=== PATIENT | male | born 1955 | race Two or more races ===

== ENCOUNTER 2018-11-24 08:52 | Outpatient (CLI) | payer OTHER ==
[~2018-11-24 08:52] MED LIST: ATACAND16 MG; VYTORIN 10-20 M1 TAB
== END 2018-11-24 08:56 | disposition home or self-care (01) ==
LOC: RAD 08:52
DX: N20.1 Calculus of ureter (principal)

== ENCOUNTER → 2018-12-02 | Outpatient (CLI) | payer OTHER | END | disposition home or self-care (01) | LOC: RAD 10:10 | DX: I10 Essential (primary) hypertension (principal) ==

== ENCOUNTER 2018-12-09 07:44 | Outpatient (CLI) | payer OTHER | END 2018-12-09 07:52 | disposition home or self-care (01) | LOC: EKG 07:44 | DX: Z01.810 Encounter for preprocedural cardiovascular examination (principal) ==

== ENCOUNTER 2018-12-14 10:44 | Day surgery (SDC) | payer OTHER ==
[~2018-12-14 10:44] MED LIST changes: +LIPITOR 20 MG; +PRILOSEC 40MG
== END 2018-12-14 20:30 | disposition home or self-care (01) ==
LOC: CIR.AMB 10:44 → EDSTATUS 11:15 → SURG 11:15 → CIR.AMB 11:15 → SURG 11:30 → CIR.AMB 20:30
DX: N20.1 Calculus of ureter (principal)

== ENCOUNTER 2020-04-25 08:35 | Day surgery (SDC) | payer OTHER ==
[~2020-04-25 08:35] MED LIST changes: +PROBIOTIC1 EAC2 PO
[2020-04-25] MEDS ORDERED: ULTRAM50 MG PO (13:01)
[2020-04-25] MEDS ORDERED: NEURONTIN300 MG PO (13:01)
[2020-04-25] MEDS ORDERED: MIRALAX17 GM PO (13:01)
[2020-04-25] MEDS ORDERED: TYLENOL ARTHRI650 MG PO (13:01)
== END 2020-04-25 19:20 | disposition home or self-care (01) ==
LOC: CIR.AMB 08:35
PROVIDERS: ATTEND Surgery
DX: K40.90 Unilateral inguinal hernia, without obstruction or gangrene, not specified as recurrent (principal); Z20.828 Contact with and (suspected) exposure to other viral communicable diseases

== ENCOUNTER 2024-07-05 14:46 | Inpatient (IN) | payer OTHER ==
[~2024-07-05] VITALS: Ht 177.8 cm; Wt 63.5 kg
[~2024-07-05 14:46] MED LIST changes: +MIRALAX17 GM PO; +NEURONTIN300 MG PO; +TYLENOL ARTHRI650 MG PO; +ULTRAM50 MG PO
--- NOTE | 2024-07-05 15:13 | NUR ---
PTE ALERTA Y ORIENTADO X3 REFIERE TENER DOLOR EN RLQ DESDE HACE [place], NOTIFICA DOS EPISODIOS DE DIARREA, NIEGA VOMITOS. SE MIDEN SV Y SE UBICA.
[2024-07-05] MEDS ORDERED: ZOLOFT20 MG/1 ML PO (15:16)
[2024-07-05] MEDS ORDERED: ZOLOFT25 MG PO (15:17)
[2024-07-05] MEDS ORDERED: KETOROLAC TROMETHAMINE 30 MG VIAL IV STA (17:05)
[2024-07-05] MEDS ORDERED: TRAMADOL HCL 50 MG TABLET PO STA (17:06)
[2024-07-05] MEDS ORDERED: HYOSCYAMINE SULFATE 0.125 MG TAB.SUBL SL ONE (17:15)
[2024-07-05] MEDS ORDERED: HYOSCYAMINE SULFATE 0.125 MG TAB.SUBL ONE (17:31)
[2024-07-05] MEDS ORDERED: KETOROLAC TROMETHAMINE 30 MG VIAL ONE ×2 (17:31→19:53)
[2024-07-05 18:00] LABS: HEMATOCRIT 44.5 % (39.0-48.0); HEMOGLOBIN 14.7 g/dL (13-16.00); MEAN CELL VOLUME 88.6 fL (80.0-100.00); MEAN CORPUSCULAR HEMOGLOBIN 29.4 pg (27.00-32.0); MEAN CORPUSCULAR HGB CONC 33.1 g/dl (32.0-36.0); PLATELET COUNT 212 K/uL (150-450); RED BLOOD COUNT 5.02 M/uL (4.00-6.00); RED CELL DISTRIBUTION WIDTH 13.9 % (11.5-14.5)
--- NOTE | 2024-07-05 18:06 | NUR ---
PTE ALERTA Y ORIENTADO X3. SE EDUCA A PTE SOBRE ANTHONY DE MUESTRAS Y TRATAMIENTO MEDICO ORDENADO POR MD, PTE REFIERE ENTENDER. SE REALIZAN REBECCA DE MUESTRAS Y SE ADMINISTRA TRATAMIENTO MEDICO BAJO MEDIDAS ASEPTICAS. SE NOTIFICA CT
[2024-07-05 18:22] LABS: INR 1.08; PARTIAL THROMBOPLASTIN TIME 32.3 SECONDS (22.0-34.0); PROTHROMBIN TIME 11.7 SECONDS (9.0-11.5)
[2024-07-05 18:31] LABS: ALBUMIN 3.9 gm/dL (3.4-5.0); BILIRUBIN TOTAL 1.94 mg/dL (0.3-1.2); CALCIUM 9.7 mg/dL (8.5-10.1); CREATININE SERUM 0.7 mg/dL (0.70-1.30); GFR 111.82; GLOBULINA 3.1 G/DL (2.4-3.5); POTASSIUM 4.59 mEq/L (3.5-5.1)
[2024-07-05 19:04] LABS: URINE APPEARANCE Clear; URINE BILIRRUBIN Negative (NEGATIVE); URINE BLOOD Negative; URINE COLOR Yellow; URINE GLUCOSE Negative (NEGATIVE); URINE KETONE Negative (NEGATIVE); URINE LEUKOCYTE Negative; URINE NITRATE Negative; URINE PROTEIN Negative (NEGATIVE); URINE UROBILINOGEN 0.2 E.U./dl
[2024-07-05 19:11] LABS: URINE BACTERIA 1.2 uL (0.0-1933); URINE WBC 1.4 uL (0.0-23.2)
[2024-07-05] MEDS ORDERED: METRONIDAZOLE/SODIUM CHLORIDE 100 ML IV SCH (19:38)
[2024-07-05] MEDS ORDERED: FAMOTIDINE/PF 20 MG in 0.9 % SODIUM CHLORIDE 8 ML IV PUSH SCH (19:38)
[2024-07-05] MEDS ORDERED: CEFTRIAXONE SODIUM 2,000 MG in 0.9 % SODIUM CHLORIDE 100 ML IV SCH (19:38)
[2024-07-05] MEDS ORDERED: 0.9 % SODIUM CHLORIDE 1,000 ML IV SCH (19:45)
[2024-07-05] MEDS ORDERED: ONDANSETRON HCL 4 MG in 0.9 % SODIUM CHLORIDE 50 ML IV PRN (19:45)
[2024-07-05] MEDS ORDERED: ACETAMINOPHEN 500 MG GEL..CAP PO PRN (19:45)
[2024-07-05] MEDS ORDERED: KETOROLAC TROMETHAMINE 30 MG VIAL IU ONE (19:45)
[2024-07-05] MEDS ORDERED: CEFTRIAXONE SODIUM 1,000 MG VIAL ONE (19:53)
[2024-07-05] MEDS ORDERED: METRONIDAZOLE/SODIUM CHLORIDE 500 MG/100 ML PIGGYBACK IV ONE (19:53)
[2024-07-05] MEDS ORDERED: FAMOTIDINE/PF 20 MG/2 ML VIAL ONE (19:54)
[2024-07-05] MEDS ORDERED: MORPHINE SULFATE 4 MG/ML CARTRIDGE IV PRN (20:30)
[2024-07-06 00:47] VITALS: BP 119/67; O2SAT 99
[2024-07-06] MEDS ORDERED: METRONIDAZOLE/SODIUM CHLORIDE 500 MG/100 ML PIGGYBACK IV ONE ×2 (01:29→16:09)
[2024-07-06 05:00] VITALS: BP 118/69; O2SAT 100
[2024-07-06 08:00] VITALS: BP 117/71; O2SAT 99
[2024-07-06] MEDS ORDERED: CANDESARTAN CILEXETIL 8 MG TAB PO SCH (09:00)
[2024-07-06] MEDS ORDERED: BUPIVACAINE HCL/MPF 0.5% 30ML VIAL ONE (12:03)
[2024-07-06] MEDS ORDERED: MORPHINE SULFATE 4 MG/ML VIAL IV ONE ×2 (15:15→16:00)
[2024-07-06 17:50] VITALS: BP 125/70; O2SAT 95
[2024-07-07 01:08] VITALS: BP 119/71; O2SAT 97
[2024-07-07 08:00] VITALS: BP 122/69; O2SAT 98
== END 2024-07-07 15:06 | disposition home or self-care (01) | DRG 399 ==
LOC: ER 14:47 → SEC-K 20:40 → SURH 20:40
PROVIDERS: Specialist; ADMIT Internal Medicine; ATTEND Internal Medicine
PROC: BW21ZZZ Computerized Tomography (CT Scan) of Abdomen and Pelvis (ICD-10-PCS; 2024-07-05)
PROC: 0DTJ4ZZ Resection of Appendix, Percutaneous Endoscopic Approach (ICD-10-PCS; principal; 2024-07-06 09:00)
DX: K35.890 Other acute appendicitis without perforation or gangrene (principal); I10 Essential (primary) hypertension